=== PATIENT | female | born 2000 | race Caucasian/White ===

== ENCOUNTER 2021-08-03 02:41 | Emergency (ER) | payer BC, OTHER ==
[~2021-08-03] VITALS: Ht 170.2 cm; Wt 81.6 kg
[2021-08-03 02:51] VITALS: BP 133/78
[2021-08-03] MEDS ORDERED: CYCLOBENZAPRINE 10 MG TABLET PO ONE (03:00)
[2021-08-03] MEDS ORDERED: TRAMADOL HCL 50 MG TABLET PO ONE (03:00)
[2021-08-03] MEDS ORDERED: KETOROLAC TROMETHAMINE INJ 30 MG/ML VIAL IM ONE (03:00)
[2021-08-03] MEDS ORDERED: KETOROLAC TROMETHAMINE INJ 30 MG/ML VIAL ONE (03:16)
[2021-08-03] MEDS ORDERED: CYCLOBENZAPRINE 10 MG TABLET ONE (03:16)
[2021-08-03] MEDS ORDERED: TRAMADOL HCL 50 MG TABLET ONE (03:16)
--- NOTE | 2021-08-03 03:20 | NUR ---
PT SIGNED WAIVER
[2021-08-03] MEDS ORDERED: CYCL5TAB PO (03:24)
[2021-08-03] MEDS ORDERED: IBUP-1957 PO (03:24)
[2021-08-03] MEDS ORDERED: TRAM-351 PO (03:24)
== END 2021-08-03 03:25 | disposition home or self-care (01) ==
LOC: ER 02:41
DX: G89.21 Chronic pain due to trauma (principal); M54.12 Radiculopathy, cervical region; Z60.2 Problems related to living alone
CPT/HCPCS: 96372; 99283; J1885